=== PATIENT | male | born 1960 | race African-American/Black ===

== ENCOUNTER 2024-12-23 00:59 | Emergency (ER) | payer SELFPAY | END 2024-12-23 01:38 | LOC: BURERS 00:59 → EEVIPCON 00:59 → BURERS 01:38 | DX: Z02.89 Encounter for other administrative examinations (principal); F17.200 Nicotine dependence, unspecified, uncomplicated; V49.9XXA Car occupant (driver) (passenger) injured in unspecified traffic accident, initial encounter | CPT/HCPCS: 99283 ==